=== PATIENT | female | born 1995 | race African-American/Black ===

== ENCOUNTER 2018-10-28 03:14 | Emergency (ER) | payer MEDICAID, OTHER ==
[~2018-10-28] VITALS: Ht 162.6 cm; Wt 64.0 kg
[2018-10-28] MEDS ORDERED: HYDROCODONE/ACETAMINOPHEN 5/325MG TABLET PO ONE (06:45)
[2018-10-28] MEDS ORDERED: BACITRACIN ZINC OINT UDPKT TOP ONE (06:45)
[2018-10-28] MEDS ORDERED: LIDOCAINE HCL/PF 1% 10 MG/ML 5ML VIAL IJ ONE (06:45)
[2018-10-28] MEDS ORDERED: TETANUS, DIPHTHERIA, PERTUSSIS VAC/PF 0.5ML (>7YR OLD) IM ONE (06:45)
[2018-10-28 07:25] VITALS: BP 115/62
[2018-10-28] MEDS ORDERED: NEOMY SULF/BACITRAC ZN/POLY OINT 28GM TOP SCH (09:00)
== END 2018-10-28 07:46 | disposition home or self-care (01) ==
LOC: ER 03:14
DX: S91.202A Unspecified open wound of left great toe with damage to nail, initial encounter (principal); F12.10 Cannabis abuse, uncomplicated; W01.0XXA Fall on same level from slipping, tripping and stumbling without subsequent striking against object, initial encounter; Y93.21 Activity, ice skating; Y92.89 Other specified places as the place of occurrence of the external cause
CPT/HCPCS: 11730; 90471; 90715; 99283; J3490; Z7610

== ENCOUNTER 2021-11-20 10:50 | Emergency (ER) | payer OTHER ==
[~2021-11-20] VITALS: Ht 162.6 cm; Wt 59.0 kg
[2021-11-20 10:55] VITALS: BP 139/76
[2021-11-20] MEDS ORDERED: LIDOCAINE 5% PATCH TOP SCH (13:00)
[2021-11-20] MEDS ORDERED: ACETAMINOPHEN 325MG TABLET PO ONE (13:00)
[2021-11-20] MEDS ORDERED: ACET-2708 MT (16:03)
[2021-11-20] MEDS ORDERED: BACL-141 MT (16:03)
== END 2021-11-20 16:36 | disposition home or self-care (01) ==
LOC: ER 11:59
DX: M79.662 Pain in left lower leg (principal); M25.512 Pain in left shoulder; F12.10 Cannabis abuse, uncomplicated; J45.909 Unspecified asthma, uncomplicated; Z91.013 Allergy to seafood
CPT/HCPCS: 73030; 81025; 93971; 99284

== ENCOUNTER 2023-02-20 10:53 | Emergency (ER) | payer OTHER ==
[~2023-02-20] VITALS: Ht 165.1 cm; Wt 58.0 kg
[~2023-02-20 10:53] MED LIST: ACET-2708 MT; BACL-141 MT
[2023-02-20 11:11] VITALS: O2SAT 100
[2023-02-20] MEDS ORDERED: LIDOCAINE HCL 1% 20ML VIAL (Pyxis) INJ INFIL ONE (11:45)
[2023-02-20] MEDS ORDERED: VANCOMYCIN 500MG PREMIX 100 ML IV SCH (12:15)
[2023-02-20] MEDS ORDERED: SODIUM CHLORIDE 0.9% 1000ML BAG (SEPSIS BOLUS) IV ONE (12:15)
[2023-02-20 13:02] LABS: BASOPHILS % 0.5 % (0.0-2.0); EOSINOPHILS % 1.1 % (0.0-5.0); HEMATOCRIT. 40.6 % (36.0-48.0); HEMOGLOBIN. 13.4 g/dL (12.0-16.0); LYMPHOCYTES % 32.1 % (20.0-50.0); MEAN CORPUSCULAR HEMOGLOBIN 29.1 pg (28.0-32.0); MEAN CORPUSCULAR HGB CONC 33.1 g/dL (31.0-37.0); MONOCYTES % 9.2 % (2.0-8.0); NEUTROPHILS % 57.1 % (40.0-76.0); PLATELET 281 x1000/uL (130-400); RED BLOOD CELL COUNT 4.61 mill/uL (4.2-5.4); RED CELL DISTRIBUTION WIDTH 14.1 % (11.6-14.6); WHITE BLOOD COUNT 5.7 x1000/uL (4.5-11.0)
[2023-02-20 13:09] LABS: HCG SCREEN NEGATIVE
[2023-02-20 13:15] LABS: ALANINE AMINOTRANSFERASE < 7 IU/L (10-49); ALBUMIN 4.1 g/dL (3.2-4.8); ASPARTATE AMINOTRANSFERASE 18 IU/L (<34); BILIRUBIN TOTAL 0.3 mg/dL (0.1-1.0); CARBON DIOXIDE 24 mEq/L (21-32); CHLORIDE 108 mEq/L (98-107); CREATININE 0.6 mg/dL (0.6-1.0); GLUCOSE 112 mg/dL (70-105); POTASSIUM 3.9 mEq/L (3.5-5.1); PROTEIN TOTAL 6.7 g/dL (6.0-8.3); SODIUM 138 mEq/L (136-145); UREA NITROGEN BLOOD 6 mg/dL (9-23)
[2023-02-20 16:57] VITALS: BP 115/66; PULSE 78; RESP 18; TEMP 97.9
[2023-02-20] MEDS ORDERED: VANCOMYCIN 1.5GM/250ML IVPB 250 ML IV NR (17:00)
[2023-02-20] MEDS ORDERED: PIPERACILLIN/TAZ 3.375G PREMIX 50 ML IV SCH (18:00)
[2023-02-20] MEDS ORDERED: VANCOMYCIN 1G PREMIX 200 ML IV SCH (21:00)
== END 2023-02-20 18:22 | disposition short-term general hospital (02) ==
LOC: ER 10:53 → CANBEDREQ 14:52 → ER 18:22
DX: S60.451A Superficial foreign body of left index finger, initial encounter (principal); L08.9 Local infection of the skin and subcutaneous tissue, unspecified; J45.909 Unspecified asthma, uncomplicated; F12.90 Cannabis use, unspecified, uncomplicated; Z91.013 Allergy to seafood; X58.XXXA Exposure to other specified factors, initial encounter; Y93.89 Activity, other specified; Y92.89 Other specified places as the place of occurrence of the external cause; Y99.8 Other external cause status
CPT/HCPCS: 80053; 84703; 83605; 85025; 87040; 36415; 73140; 99284; J3490; J7030; Z7610 ×3; J3370